=== PATIENT | female | born 1950 | race Caucasian/White ===

== ENCOUNTER 2019-04-18 15:00 | Emergency (ER) | payer MEDICARE, MEDICAID ==
[2019-04-18] MEDS ORDERED: Etomidate 2 MG/ML 20 ML SDV IVPUSH ONE ×2 (15:01→15:38)
[2019-04-18] MEDS ORDERED: Lidocaine 2% 100 MG/5 ML Syringe IVPUSH ONE (15:01)
[2019-04-18] MEDS ORDERED: Succinylcholine 200 MG/10 ML MDV IV ONE ×2 (15:01→15:39)
[2019-04-18] MEDS ORDERED: Rocuronium 100 MG/10 ML MDV IVPUSH ONE (15:01)
[2019-04-18] MEDS ORDERED: Sodium Chloride 0.9% 10 ML Syringe FLUSH PRN ×2 (15:03→17:19)
[2019-04-18] MEDS ORDERED: Sodium Chloride 0.9% 2.5 ML Syringe FLUSH PRN ×2 (15:03→17:19)
[2019-04-18] MEDS ORDERED: Sodium Chloride 0.9% 10 ML SDV IV PRN ×2 (15:03→17:19)
--- NOTE | 2019-04-18 15:08 | EDM.PDOC ---
ED HPI GENERAL MEDICAL PROBLEM - General Chief Complaint: Neuro Symptoms/Deficits Stated Complaint: STROKE CODE Time Seen by Provider: 04/18/19 15:02 Source of Information: Reports: EMS History Limitations: Reports: No Limitations - History of Present Illness INITIAL COMMENTS - FREE TEXT/NARRATIVE: History of present illness: []Patient was brought in as a stroke code after calling her roommate around 12: 30 or help to get up. When her roommate came into her room she was face down on the floor and unable to move her. She stated that her legs just gave out on her. Just shortly after that her words became garbled and her roommate was not able to understand her speech. She also stopped moving her left arm. Patient with glucose in the field was 91 she arrived with a right-sided gaze not moving her left arm and not speaking. Patient arrived in no respiratory distress with , with low pressure 187/96, pulse in the 70's. She did not receive any medications by EMS. Patient had fecal incontinence by her to arrival. Review of systems: As per history of present illness and below otherwise all systems reviewed and negative. Past medical history: As per history of present illness and as reviewed below otherwise noncontributory. Surgical history: As per history of present illness and as reviewed below otherwise noncontributory. Social history: No reported history of drug or alcohol abuse. Family history: As per history of present illness and as reviewed below otherwise noncontributory. Physical exam: General: Well developed, well nourished in NAD HEENT: Atraumatic, normocephalic, pupils reactive, negative for conjunctival pallor or scleral icterus, mucous membranes moist, throat clear, neck supple, nontender, trachea midline. Lungs: Clear to auscultation, breath sounds equal bilaterally, chest nontender. Heart: S1S2, regular, negative for clicks, rubs, or JVD. Abdomen: NABS, Soft, nondistended, nontender. Negative for masses or hepatosplenomegaly. Negative for costovertebral tenderness. Pelvis: Stable nontender. Genitourinary: Deferred. Rectal: Deferred. Extremities: Atraumatic, negative for cords or calf pain. Neurovascular unremarkable. Neuro: Right-sided gaze not moving extremities spontaneously not responding verbally Skin:warm and dry Diagnostics: CT head shows a large right basal ganglia acute hematoma measuring 5.83.2 x 5.0 cm with 14 mm of mass effect from right to left facing the right lateral ventricle. CT C-spine no acute fracture CBC, CMP, troponin and TSH are all normal Post intubation chest x-ray shows ET tube in good position lung rodriguez clear Therapeutics: Patient was intubated using RSI with etomidate and succinylcholine and sedated with propofol and paralyzed with rocuronium. ED Course: Flight was unable to fly to [facility] therefore patient is going to [facility]. Dr. Agudelo accepts agent to the ER. Impression: Hemorrhagic stroke Plan: Transfer to [facility] emergency room. Definitive disposition and diagnosis as appropriate pending reevaluation and review of above. - Related Data Allergies Allergy/AdvReac Type Severity Reaction Status Date / Time azithromycin Allergy Itching Verified 04/18/19 15:23 Penicillins Allergy Other Verified 04/18/19 15:23 Home Meds: Home Meds Aspirin [[place] Chewable Aspirin] 81 mg PO DAILY 12/30/14 [History] Metoprolol Tartrate 50 mg PO BID 12/30/14 [History] Ranitidine [Zantac] 150 mg PO BID 12/30/14 [History] Venlafaxine [Effexor XR] 37.5 mg PO BID 12/30/14 [History] atorvaSTATin [Lipitor] 20 mg PO DAILY 12/30/14 [History] Furosemide 40 mg PO DAILY 04/18/19 [History] Losartan [Cozaar] 100 mg PO DAILY 04/18/19 [History] Potassium Chloride 10 meq PO DAILY 04/18/19 [History] ED ROS GENERAL - Review of Systems Review Of Systems: ROS reveals no pertinent complaints other than HPI. ED EXAM, NEURO - Physical Exam Exam: Not Obtained Course - Orders/Labs/Meds Orders: Active Orders 24 hr Category Date Time Status Assess Neurological Status [RC] ASDIRECTED Care 04/18/19 15:03 Active Bedrest [RC] ASDIRECTED Care 04/18/19 15:03 Active Cardiac Monitoring [RC] . DIRECTED Care 04/18/19 15:03 Active EKG Documentation Completion [RC] STAT Care 04/18/19 15:03 Active Height and Weight [RC] UPON Care 04/18/19 15:03 Active Initiate Acute Stroke Protocol [RC] STAT Care 04/18/19 15:03 Active NIH Stroke Scale [RC] ASDIRECTED Care 04/18/19 15:03 Active Nursing Bedside Swallow Screen [RC] ASDIRECTED Care 04/18/19 15:03 Active Oxygen Therapy [RC] ASDIRECTED Care 04/18/19 15:03 Active Stroke Education, General [RC] Click to Edit Care 04/18/19 15:03 Active Vital Signs [RC] Q15M Care 04/18/19 15:03 Active Cervical Spine wo Cont [CT] Stat Exams 04/18/19 15:11 Taken Chest 1V Frontal [CR] Stat Exams 04/18/19 16:06 Taken Sodium Chloride 0.9% [Normal Saline] Med 04/18/19 15:03 Active 10 ml IV ASDIRECTED PRN Sodium Chloride 0.9% [Saline Flush] Med 04/18/19 15:03 Active 10 ml FLUSH ASDIRECTED PRN Sodium Chloride 0.9% [Saline Flush] Med 04/18/19 15:03 Active 2.5 ml FLUSH ASDIRECTED PRN Peripheral IV Insertion Adult [OM.PC] Stat Oth 04/18/19 15:03 Ordered Peripheral IV Insertion Adult [OM.PC] Stat Oth 04/18/19 15:03 Ordered Medication Orders Sodium Chloride (Saline Flush) 10 ml FLUSH ASDIRECTED PRN PRN Reason: Keep Vein Open Sodium Chloride (Saline Flush) 2.5 ml FLUSH ASDIRECTED PRN PRN Reason: Keep Vein Open Sodium Chloride (Normal Saline) 10 ml IV ASDIRECTED PRN PRN Reason: IV Use Labs: Laboratory Tests 04/18/19 04/18/19 04/18/19 Range/Units 15:21 15:21 15:21 WBC 8.29 (4.0-11.0) K/uL RBC 4.76 (4.30-5.90) M/uL Hgb 14.5 (12.0-16.0) g/dL Hct 44.7 (36.0-46.0) % MCV 93.9 (80.0-98.0) fL MCH 30.5 (27.0-32.0) pg MCHC 32.4 (31.0-37.0) g/dL RDW Std Deviation 45.5 (28.0-62.0) fl RDW Coeff of Tien 14 (11.0-15.0) % Plt Count 238 (150-400) K/uL MPV 9.70 (7.40-12.00) fL Neut % (Auto) 77.3 (48.0-80.0) % Lymph % (Auto) 10.9 L (16.0-40.0) % [place] % (Auto) 9.0 (0.0-15.0) % Eos % (Auto) 2.3 (0.0-7.0) % Baso % (Auto) 0.5 (0.0-1.5) % Neut # (Auto) 6.4 H (1.4-5.7) K/uL Lymph # (Auto) 0.9 (0.6-2.4) K/uL [place] # (Auto) 0.8 (0.0-0.8) K/uL Eos # (Auto) 0.2 (0.0-0.7) K/uL Baso # (Auto) 0.0 (0.0-0.1) K/uL INR 0.97 APTT 23.9 (18.6-31.3) SEC Sodium 145 (136-145) mmol/L Potassium 3.6 (3.5-5.1) mmol/L Chloride 104 (98-107) mmol/L Carbon Dioxide 31.8 (21.0-32.0) mmol/L BUN 18 (7.0-18.0) mg/dL Creatinine 0.9 (0.6-1.0) mg/dL Est Cr Clr Drug Dosing TNP Estimated GFR (MDRD) > 60.0 ml/min Glucose 162 H (74-106) mg/dL Calcium 9.3 (8.5-10.1) mg/dL Total Bilirubin 0.6 (0.2-1.0) mg/dL AST 22 (15-37) IU/L ALT 19 (14-63) IU/L Alkaline Phosphatase 90 (46-116) U/L Troponin I < 0.050 (0.000-0.056) ng/mL Total Protein 6.9 (6.4-8.2) g/dL Albumin 3.5 (3.4-5.0) g/dL Globulin 3.4 (2.6-4.0) g/dL Albumin/Globulin Ratio 1.0 (0.9-1.6) TSH 3rd Generation 2.52 (0.36-3.74) uIU/mL Meds: Medications Generic Name Dose Route Start Last Admin Trade Name Freq PRN Reason Stop Dose Admin Sodium Chloride 10 ml 04/18/19 15:03 Saline Flush FLUSH ASDIRECTED PRN Keep Vein Open Sodium Chloride 2.5 ml 04/18/19 15:03 Saline Flush FLUSH ASDIRECTED PRN Keep Vein Open Sodium Chloride 10 ml 04/18/19 15:03 Normal Saline IV ASDIRECTED PRN IV Use Discontinued Medications Generic Name Dose Route Start Last Admin Trade Name Freq PRN Reason Stop Dose Admin Propofol Confirm 04/18/19 15:34 Diprivan 100 Ml Administered 04/18/19 15:35 Dose 100 mls @ as directed .ROUTE .STK-MED ONE Departure - Departure Time of Disposition: 16:25 Disposition: DC/Tfer to Acute Hospital 02 Condition: Critical Clinical Impression: Hemorrhagic stroke - Discharge Information *COPY OF PRESCRIPTION DRUG MONITORING REPORT IN PATIENT PATRICE: Not Applicable Referrals: PCP,None [Primary Care Provider] - Forms: ED Department Discharge - My Orders Last 24 Hours: My Active Orders 04/18/19 15:03 Assess Neurological Status [RC] ASDIRECTED Bedrest [RC] ASDIRECTED Cardiac Monitoring [RC] . DIRECTED EKG Documentation Completion [RC] STAT Height and Weight [RC] UPON Initiate Acute Stroke Protocol [RC] STAT NIH Stroke Scale [RC] ASDIRECTED Nursing Bedside Swallow Screen [RC] ASDIRECTED Oxygen Therapy [RC] ASDIRECTED Stroke Education, General [RC] Click to Edit Vital Signs [RC] Q15M Sodium Chloride 0.9% [Normal Saline] 10 ml IV ASDIRECTED PRN Sodium Chloride 0.9% [Saline Flush] 10 ml FLUSH ASDIRECTED PRN Sodium Chloride 0.9% [Saline Flush] 2.5 ml FLUSH ASDIRECTED PRN Peripheral IV Insertion Adult [OM.PC] Stat Peripheral IV Insertion Adult [OM.PC] Stat 04/18/19 15:11 Cervical Spine wo Cont [CT] Stat 04/18/19 16:06 Chest 1V Frontal [CR] Stat - Assessment/Plan Last 24 Hours: My Active Orders 04/18/19 15:03 Assess Neurological Status [RC] ASDIRECTED Bedrest [RC] ASDIRECTED Cardiac Monitoring [RC] . DIRECTED EKG Documentation Completion [RC] STAT Height and Weight [RC] UPON Initiate Acute Stroke Protocol [RC] STAT NIH Stroke Scale [RC] ASDIRECTED Nursing Bedside Swallow Screen [RC] ASDIRECTED Oxygen Therapy [RC] ASDIRECTED Stroke Education, General [RC] Click to Edit Vital Signs [RC] Q15M Sodium Chloride 0.9% [Normal Saline] 10 ml IV ASDIRECTED PRN Sodium Chloride 0.9% [Saline Flush] 10 ml FLUSH ASDIRECTED PRN Sodium Chloride 0.9% [Saline Flush] 2.5 ml FLUSH ASDIRECTED PRN Peripheral IV Insertion Adult [OM.PC] Stat Peripheral IV Insertion Adult [OM.PC] Stat 04/18/19 15:11 Cervical Spine wo Cont [CT] Stat 04/18/19 16:06 Chest 1V Frontal [CR] Stat
[2019-04-18] MEDS ORDERED: Sodium Chloride 0.9% 1,000 ML IV ONE (15:25)
--- NOTE | 2019-04-18 15:40 | CT ---
INDICATION: Code stroke. Status post fall. COMPARISON: None available. TECHNIQUE: CT examination of the head was performed with 3 mm thick axial sections without intravenous contrast. Images were obtained from the vertex of the skull through the skull base, and I examined the images with the brain and bone windows. Please note that all CT scans at this facility use dose modulation, iterative reconstruction, and/or weight-based dosing when appropriate to reduce radiation dose to as low as reasonably achievable. FINDINGS: : There is a large right basal ganglia acute hematoma measuring 5.8 x 3.2 by 5.0 centimeters, with prominent mass effect, resulting in 14 millimeters of right to left midline shift and moderate effacement of the right lateral ventricle. There is mild edema surrounding the hematoma. The brainstem is only minimally shifted towards the right, and there is no sign of descending transtentorial herniation at this time. The right uncus is not significantly displaced. There is minimal subarachnoid extension of the hemorrhage, with a small amount of blood seen in sulci of the right mid parietal region and in the anterior right sylvian cistern There is no sign of intraventricular extension of the hemorrhage. Elsewhere in the brain, there is mild dilatation of the ventricles and sulci representing mild, age-appropriate atrophy. There is moderate periventricular and subcortical white matter hypodensity from age appropriate small vessel ischemia. Old lacunar infarcts are seen in the caudate heads bilaterally. The visualized portions of the orbits are normal in appearance. The visualized portions of the paranasal sinuses and mastoids are clear. The osseous structures are normal in their appearance with no sign of abnormality in the skull base or calvarium. IMPRESSION: Large acute intraparenchymal hematoma in the right basal ganglia consistent with hypertensive hemorrhage. Mild subarachnoid extension of the hemorrhage into the anterior right sylvian cistern and right mid parietal sulci. Moderate mass-effect with prominence right to left midline shift, with 14 millimeters of displacement of the septum pellucidum. No sign of descending transtentorial herniation, and there is only minimal shift of the brainstem towards the left. Mild, age-appropriate atrophy and moderate small vessel ischemic changes consistent with the patient`s age. Please note that all CT scans at this facility use dose modulation, iterative reconstruction, and/or weight-based dosing when appropriate to reduce radiation dose to as low as reasonably achievable. Dictated by Allen Don MD @ Apr 18 2019 3:31PM Signed by Dr. Allen Don @ Apr 18 2019 3:38PM
[2019-04-18] MEDS ORDERED: Propofol 200 MG/20 ML SDV IVPUSH ONE (15:42)
[2019-04-18] MEDS ORDERED: Rocuronium 50 MG/5 ML Vial IVPUSH ONE (15:55)
[2019-04-18] MEDS ORDERED: Sodium Chloride 0.9% 1,000 ML IV SCH (16:04)
[2019-04-18 16:05] LABS: BLOOD UREA NITROGEN,BUN 18 mg/dL (7.0-18.0); CARBON DIOXIDE,CO2 31.8 mmol/L (21.0-32.0); CHLORIDE,CL 104 mmol/L (98-107); GLUCOSE RANDOM 162 mg/dL (74-106); POTASSIUM,K 3.6 mmol/L (3.5-5.1); SODIUM,NA 145 mmol/L (136-145)
--- NOTE | 2019-04-18 16:15 | CT ---
INDICATION: Trauma TECHNIQUE: CT cervical spine without contrast. COMPARISON: None available FINDINGS: There is mild motion artifact in the mid cervical spine. There is slight retrolisthesis of C4 and C5, likely degenerative. The cervical spine alignment is otherwise within normal limits. Mild rotational atlantoaxial alignment could be positional. There is no evidence of a gross acute cervical spine fracture. There is no significant precervical soft tissue swelling. Mild degenerative changes are seen. IMPRESSION: No evidence of a gross acute cervical spine fracture. Dictated by Elias Boswell MD @ 04/18/2019 4:13:16 PM Please note that all CT scans at this facility use dose modulation, iterative reconstruction, and/or weight-based dosing when appropriate to reduce radiation dose to as low as reasonably achievable. Dictated by: Elias Boswell MD @ 04/18/2019 16:13:26 (Electronically Signed)
--- NOTE | 2019-04-18 16:32 | CR ---
Indication: Postintubation. Technique: A single AP portable view of the chest was obtained. Comparison: None Findings: An ET tube is identified with the tip 2 cm superior to level of yassine. NG tube courses below the left hemidiaphragm with the tip overlying the body of the stomach. A defibrillator pad overlies the right chest. The heart is normal in size. The lungs are clear. No infiltrate, pleural effusion, or pneumothorax is identified. Impression: Intubation. Dictated by Madison Rosen MD @ Apr 18 2019 4:29PM Signed by Dr. Madison Rosen @ Apr 18 2019 4:29PM
[2019-04-18 19:17] VITALS: BP 129/71; PULSE 61
== END 2019-04-18 16:25 ==
LOC: MW.ED 15:00
DX: S06.6X9A Traumatic subarachnoid hemorrhage with loss of consciousness of unspecified duration, initial encounter (principal); Z88.0 Allergy status to penicillin; Z88.1 Allergy status to other antibiotic agents; Z79.82 Long term (current) use of aspirin; Z79.899 Other long term (current) drug therapy; W18.39XA Other fall on same level, initial encounter
CPT/HCPCS: 31500; 36415; 70450; 71045; 72125; 80053; 81003; 84443; 84484; 85025; 85610; 85730; 93005; 96360; 99291; 99292; G0390; J0330; J2001; J3490; 99285